=== PATIENT | female | born 1950 | race Caucasian/White ===

== ENCOUNTER 2022-01-17 10:51 | Observation (INO) ==
[2022-01-17] MEDS ORDERED: ZOFRAN INJ 4 MG VIAL IVP PRN (12:36)
[2022-01-17] MEDS ORDERED: MORPHINE SULFATE INJ 2 MG INJ IVP PRN (12:37)
[2022-01-17 13:16] LABS: BASOPHILS # (AUTO) 0.1 X10^3/uL (0.0-0.1); BASOPHILS % (AUTO) 1.1 % (0.2-1.0); EOSINOPHILS # (AUTO) 0.1 x10^3/uL (0.0-0.2); EOSINOPHILS % (AUTO) 1.2 % (0.9-2.9); HEMATOCRIT 37.8 % (36.0-47.0); HEMOGLOBIN 12.3 g/dL (12.0-16.0); LYMPHOCYTES # (AUTO) 2.8 X10^3/uL (1.3-2.9); LYMPHOCYTES % (AUTO) 30.6 % (21.0-51.0); MEAN CORPUSCULAR HEMOGLOBIN 23.8 pg (27.0-34.0); MEAN CORPUSCULAR HGB CONC 32.5 g/dL (33.0-35.0); MEAN CORPUSCULAR VOLUME 73.1 fL (80.0-100.0); MEAN PLATELET VOLUME 7.8 fL (7.4-11.0); MONOCYTES % (AUTO) 10.6 % (0.0-13.0); NEUTROPHILS # (AUTO) 5.1 x10^3/uL (2.2-4.8); NEUTROPHILS % (AUTO) 56.5 % (42.0-75.0); RED BLOOD COUNT 5.17 X10^6/uL (3.5-5.4); RED CELL DISTRIBUTION WIDTH 17.8 % (11.6-16.5)
[2022-01-17 13:27] LABS: ALANINE AMINOTRANSFERASE 20 Units/L (12-78); ALBUMIN 3.7 g/dL (3.4-5.0); ALKALINE PHOSPHATASE 86 Units/L (46-116); AMYLASE 25 Units/L (25-115); ASPARTATE AMINO TRANSFERASE 26 Units/L (15-37); BLOOD UREA NITROGEN 8 mg/dL (7-18); CALCIUM 9.2 mg/dL (8.5-10.1); CARBON DIOXIDE 26.1 mmol/L (21-32); CHLORIDE 99 mmol/L (98-107); COR NA(FOR HYPERGLY) 137 mmol/L (136-145); CREATININE 0.55 mg/dL (0.55-1.02); LIPASE 115 Units/L (73-393); SODIUM 136 mmol/L (136-145); TOTAL PROTEIN 7.4 g/dL (6.4-8.2); eGFR NON BLACK RACES > 60 (>60)
[2022-01-17 14:09] VITALS: BMI 28.0
[2022-01-17 14:11] LABS: ANISOCYTOSIS SLIGHT; HYPOCHROMASIA 1+; MICROCYTOSIS SLIGHT; PLATELET MORPHOLOGY COMMENT NORMAL (NORMAL)
[2022-01-17] MEDS: D5 1/2 NS 1,000 ML 1,000 ML IV SCH ×2 (14:15→22:35)
[2022-01-17] MEDS: PROTONIX INJ 40 MG VIAL IVP SCH ×2 (14:15→21:30)
[2022-01-17] MEDS: K-DUR TAB 20 MEQ PO SCH (17:49)
[2022-01-17] MEDS ORDERED: ATIVAN TAB 1 MG PO PRN (17:53)
--- NOTE | 2022-01-17 19:34 | RAD ---
HISTORYSX CLEARANCE, GBSTUDYCHEST, 1 VIEWCOMPARISONNone.TECHNIQUEA single frontal view of the chest was obtained.FINDINGSThere is a permanent pacemaker overlying the left chest wall with its proximal lead in the right atrium and distal lead in the right ventricle. The heart is normal in size. There is linear subsegmental atelectasis of the left lung base. There is no effusion. There is no pneumothorax. The osseous structures are intact. There is evidence for anterior cervical interbody fusion of C7 and T1.IMPRESSIONNo focal infiltrate or effusion. Permanent pacemaker overlying the left chest wall.Electronically signed by: Saritha Nogueira (Jan 17, 2022 19:32:14)
[2022-01-17] MEDS ORDERED: NovoLIN R (or HumuLIN R) SUBCUT PRN (20:20)
[2022-01-17] MEDS ORDERED: ATIVAN TAB 1 MG ONE (21:48)
[2022-01-18 04:56] LABS: BASOPHILS # (AUTO) 0.1 X10^3/uL (0.0-0.1); EOSINOPHILS # (AUTO) 0.2 x10^3/uL (0.0-0.2); EOSINOPHILS % (AUTO) 2.2 % (0.9-2.9); HEMATOCRIT 36.1 % (36.0-47.0); HEMOGLOBIN 11.7 g/dL (12.0-16.0); LYMPHOCYTES # (AUTO) 3.4 X10^3/uL (1.3-2.9); LYMPHOCYTES % (AUTO) 40.7 % (21.0-51.0); MEAN CORPUSCULAR HEMOGLOBIN 23.5 pg (27.0-34.0); MEAN CORPUSCULAR HGB CONC 32.4 g/dL (33.0-35.0); MEAN CORPUSCULAR VOLUME 72.5 fL (80.0-100.0); MEAN PLATELET VOLUME 8.9 fL (7.4-11.0); MONOCYTES % (AUTO) 11.9 % (0.0-13.0); NEUTROPHILS # (AUTO) 3.6 x10^3/uL (2.2-4.8); NEUTROPHILS % (AUTO) 44.2 % (42.0-75.0); RED BLOOD COUNT 4.98 X10^6/uL (3.5-5.4); RED CELL DISTRIBUTION WIDTH 17.3 % (11.6-16.5); WHITE BLOOD COUNT 8.2 X10^3/uL (3.6-10.0)
[2022-01-18 05:11] LABS: ALANINE AMINOTRANSFERASE 18 Units/L (12-78); ALBUMIN 3.4 g/dL (3.4-5.0); ALKALINE PHOSPHATASE 79 Units/L (46-116); ASPARTATE AMINO TRANSFERASE 24 Units/L (15-37); BLOOD UREA NITROGEN 5 mg/dL (7-18); CALCIUM 8.7 mg/dL (8.5-10.1); CARBON DIOXIDE 24.5 mmol/L (21-32); CHLORIDE 101 mmol/L (98-107); COR NA(FOR HYPERGLY) 137 mmol/L (136-145); CREATININE 0.59 mg/dL (0.55-1.02); SODIUM 136 mmol/L (136-145); TOTAL PROTEIN 6.9 g/dL (6.4-8.2); eGFR NON BLACK RACES > 60 (>60)
[2022-01-18 05:41] LABS: ANISOCYTOSIS SLIGHT; HYPOCHROMASIA 1+; MICROCYTOSIS SLIGHT; OVALOCYTES PRESENT; PLATELET MORPHOLOGY COMMENT NORMAL (NORMAL)
[2022-01-18] MEDS: D5 1/2 NS 1,000 ML 1,000 ML IV SCH ×4 (07:06→23:19)
[2022-01-18] MEDS: PROTONIX INJ 40 MG VIAL IVP SCH ×2 (08:25→21:20)
[2022-01-18] MEDS: K-DUR TAB 20 MEQ PO SCH (08:28)
[2022-01-18] MEDS ORDERED: POTASSIUM CHL 60 MEQ/NS 0.45% 500 ML IV PRN (09:06)
[2022-01-18] MEDS ORDERED: KLOR-CON PO PRN (09:06)
[2022-01-18] MEDS ORDERED: K-DUR TAB 20 MEQ PO PRN (09:06)
[2022-01-18] MEDS ORDERED: POTASSIUM CHL 40 MEQ/NS 0.45% 500 ML IV PRN (09:06)
[2022-01-18] MEDS ORDERED: POTASSIUM CHLORIDE LIQ 20 MEQ UDC PO PRN (09:06)
[2022-01-18] MEDS ORDERED: MICRO K EXTEN CAP 10 MEQ PO PRN (09:06)
[2022-01-18] MEDS ORDERED: OFIRMEV IV 1000 MG VIAL 1,000 MG/100 ML VIAL IV PRN (09:07)
[2022-01-18] MEDS ORDERED: ZANAFLEX PO PRN (10:06)
[2022-01-18] MEDS ORDERED: ULTRAM PO PRN (10:06)
[2022-01-18] MEDS ORDERED: NovoLIN R (or HumuLIN R) SUBCUT PRN (10:09)
[2022-01-18] MEDS: TOPROL XL PO SCH ×2 (10:36→21:20)
[2022-01-18] MEDS: SYNTHROID 100 mcg TAB PO SCH (10:36)
[2022-01-18] MEDS: K-RIDER 10 MEQ/NS 100 ML 10 MEQ/100 ML BAG IV PRN ×4 (10:38→17:13)
[2022-01-18] MEDS: LASIX PO SCH ×2 (10:53→21:20)
[2022-01-18] MEDS ORDERED: ANCEF VIAL 1 GRAM ONE (11:40)
[2022-01-18] MEDS ORDERED: NS 100 ML IV 100 ML ONE (11:41)
[2022-01-18] MEDS ORDERED: NS 1,000 ML IV 1,000 ML ONE (11:41)
[2022-01-18] MEDS ORDERED: FENTANYL VIAL INJ 100 mcg ONE ×2 (11:47→12:40)
[2022-01-18] MEDS ORDERED: VERSED ONE (11:47)
[2022-01-18] MEDS ORDERED: DIPRIVAN VIAL 20 ML ONE (11:48)
[2022-01-18] MEDS ORDERED: BACTROBAN TOPICAL OINT ONE (11:56)
[2022-01-18] MEDS ORDERED: ZOFRAN INJ 4 MG VIAL IVP PRN (11:58)
[2022-01-18] MEDS ORDERED: BENADRYL INJ 50 MG VIAL IVP PRN (11:58)
[2022-01-18] MEDS ORDERED: REGLAN INJ 10 MG VIAL IVP PRN (11:58)
[2022-01-18] MEDS ORDERED: PHENERGAN INJ 25 MG IM PRN ×2 (11:58→21:27)
[2022-01-18] MEDS ORDERED: BARHEMSYS INJ IVP PRN (11:58)
[2022-01-18] MEDS ORDERED: SUPRANE ONE (12:15)
[2022-01-18] MEDS ORDERED: ZOFRAN INJ 4 MG VIAL ONE (12:33)
[2022-01-18] MEDS ORDERED: BRIDION ONE (12:33)
[2022-01-18] MEDS ORDERED: OFIRMEV IV 1000 MG VIAL 1,000 MG/100 ML VIAL IV ONE (12:33)
[2022-01-18] MEDS ORDERED: TORADOL 30 MG VIAL ONE (12:34)
[2022-01-18] MEDS ORDERED: BREVIBLOC ONE (12:51)
[2022-01-18] MEDS ORDERED: DILAUDID INJ ONE (13:03)
[2022-01-18] MEDS: DILAUDID INJ IVP PRN ×2 (13:45→14:05)
[2022-01-18] MEDS ORDERED: NORMODYNE INJ 20 MG VIAL ONE (14:10)
[2022-01-18] MEDS ORDERED: SNACK - Diabetic Appropriate PO SCH ×3 (20:00)
[2022-01-18] MEDS ORDERED: AMBIEN PO SCH (21:00)
[2022-01-18] MEDS ORDERED: ZOCOR TAB 20 MG PO SCH (21:00)
[2022-01-18] MEDS: XANAX PO SCH (21:21)
[2022-01-18] MEDS ORDERED: PHENERGAN INJ 25 MG IM ONE (21:29)
[2022-01-19] MEDS: D5 1/2 NS 1,000 ML 1,000 ML IV SCH ×2 (05:39→07:36)
[2022-01-19 05:58] LABS: BASOPHILS # (AUTO) 0.1 X10^3/uL (0.0-0.1); BASOPHILS % (AUTO) 0.8 % (0.2-1.0); EOSINOPHILS # (AUTO) 0.1 x10^3/uL (0.0-0.2); EOSINOPHILS % (AUTO) 0.8 % (0.9-2.9); HEMATOCRIT 34.7 % (36.0-47.0); HEMOGLOBIN 11.1 g/dL (12.0-16.0); LYMPHOCYTES # (AUTO) 2.2 X10^3/uL (1.3-2.9); LYMPHOCYTES % (AUTO) 22.3 % (21.0-51.0); MEAN CORPUSCULAR HEMOGLOBIN 23.7 pg (27.0-34.0); MEAN CORPUSCULAR HGB CONC 32.1 g/dL (33.0-35.0); MEAN CORPUSCULAR VOLUME 73.7 fL (80.0-100.0); MEAN PLATELET VOLUME 8.4 fL (7.4-11.0); MONOCYTES # (AUTO) 0.9 x10^3/uL (0.3-0.8); MONOCYTES % (AUTO) 9.2 % (0.0-13.0); NEUTROPHILS # (AUTO) 6.5 x10^3/uL (2.2-4.8); NEUTROPHILS % (AUTO) 66.9 % (42.0-75.0); RED CELL DISTRIBUTION WIDTH 17.8 % (11.6-16.5); WHITE BLOOD COUNT 9.8 X10^3/uL (3.6-10.0)
[2022-01-19 06:17] LABS: ALANINE AMINOTRANSFERASE 21 Units/L (12-78); ALBUMIN 2.9 g/dL (3.4-5.0); ALKALINE PHOSPHATASE 78 Units/L (46-116); ASPARTATE AMINO TRANSFERASE 48 Units/L (15-37); BLOOD UREA NITROGEN 6 mg/dL (7-18); CALCIUM 8.1 mg/dL (8.5-10.1); CARBON DIOXIDE 26.1 mmol/L (21-32); CHLORIDE 103 mmol/L (98-107); COR NA(FOR HYPERGLY) 139 mmol/L (136-145); CREATININE 0.61 mg/dL (0.55-1.02); SODIUM 138 mmol/L (136-145); TOTAL PROTEIN 6.4 g/dL (6.4-8.2); eGFR NON BLACK RACES > 60 (>60)
[2022-01-19 06:50] LABS: PLATELET MORPHOLOGY COMMENT NORMAL (NORMAL)
[2022-01-19 06:51] LABS: HYPOCHROMASIA 1+; OVALOCYTES 1+
[2022-01-19 07:52] VITALS: BP 122/57
[2022-01-19] MEDS: K-DUR TAB 20 MEQ PO SCH (08:27)
[2022-01-19] MEDS: XANAX PO SCH (08:28)
[2022-01-19] MEDS: LASIX PO SCH (08:28)
[2022-01-19] MEDS: PROTONIX INJ 40 MG VIAL IVP SCH (08:28)
[2022-01-19] MEDS: TOPROL XL PO SCH (08:28)
[2022-01-19] MEDS: SYNTHROID 100 mcg TAB PO SCH (08:28)
[2022-01-19] MEDS ORDERED: JANUVIA PO SCH (09:00)
[2022-01-19] MEDS ORDERED: ZyrTEC TAB 10 MG PO SCH (09:00)
[2022-01-19] MEDS ORDERED: ACTOS PO SCH (09:00)
[2022-01-19] MEDS ORDERED: DAPAGLIFLOZIN 10 MG PO SCH (09:00)
[2022-01-20 07:08] LABS: ANISOCYTOSIS SLIGHT; MICROCYTOSIS SLIGHT
== END 2022-01-19 12:10 | disposition home or self-care (01) ==
LOC: MED/SURG
PROVIDERS: ADMIT Surgery; ATTEND Surgery
DX: R94.31 Abnormal electrocardiogram [ECG] [EKG]; R11.2 Nausea with vomiting, unspecified; K29.60 Other gastritis without bleeding; E03.8 Other specified hypothyroidism; K76.89 Other specified diseases of liver; E87.6 Hypokalemia; E86.0 Dehydration; F32.89 Other specified depressive episodes; Z66 Do not resuscitate; R10.84 Generalized abdominal pain; I25.10 Atherosclerotic heart disease of native coronary artery without angina pectoris; K31.84 Gastroparesis; F41.8 Other specified anxiety disorders; E11.43 Type 2 diabetes mellitus with diabetic autonomic (poly)neuropathy; K80.12 Calculus of gallbladder with acute and chronic cholecystitis without obstruction